=== PATIENT | male | born 1995 | race American Indian/Alaskan Native ===

== ENCOUNTER 2016-11-15 13:34 | Emergency (ER) | payer SELFPAY ==
[2016-11-15 14:26] VITALS: BP 115/73
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
== END 2016-11-15 18:20 | disposition home or self-care (01) ==
LOC: ED 13:34
DX: M62.830 Muscle spasm of back (principal); F17.200 Nicotine dependence, unspecified, uncomplicated; F12.10 Cannabis abuse, uncomplicated
CPT/HCPCS: 99282

== ENCOUNTER 2018-04-02 15:49 | Emergency (ER) | payer SELFPAY ==
[2018-04-02] MEDS ORDERED: IBUPROFEN ONE (16:39)
[2018-04-02] MEDS ORDERED: IBUPROFEN PO ONE (16:41)
[2018-04-02] MEDS ORDERED: TORADOL IV STA (20:35)
[2018-04-02] MEDS ORDERED: REGLAN IV STA (20:35)
[2018-04-02] MEDS ORDERED: NACL 0.9% 1000 ML 1,000 ML IV ONE (20:35)
[2018-04-02] MEDS ORDERED: BENADRYL IV STA (20:35)
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
--- NOTE | 2018-04-02 22:10 | Cat Scan Report ---
FINAL REPORT EXAM: CT HEAD/BRAIN WO CON HISTORY: 2 weeks with dizziness and visual changes TECHNIQUE: 2.5 millimeter axial images from the skullbase to the vertex. Comparison: None FINDINGS: There is no evidence of an acute intracranial process, intracranial hemorrhage or mass effect. The ventricles are normal size. The visualized portions of the orbits, paranasal and mastoid sinuses are notable for moderate to roger ed paranasal sinus mucosal thickening with numerous air-fluid level suggestive of acute sinusitis. The bony structures are unremarkable in appearance. IMPRESSION: 1. Acute sinusitis involving the paranasal sinuses. 2. No CT evidence of an acute intracranial process. If there is a clinical suspicion of an acute intr acranial process, MRI brain without and with gadolinium would be helpful for further evaluation
[2018-04-02 23:07] VITALS: BP 122/60
== END 2018-04-02 23:08 | disposition home or self-care (01) ==
LOC: ED 15:49
DX: J32.1 Chronic frontal sinusitis (principal); R42 Dizziness and giddiness; H53.149 Visual discomfort, unspecified; Z87.891 Personal history of nicotine dependence
CPT/HCPCS: 70450; 96361; 96374; 96375; 99283; J1200; J1885; J2765; J7030

== ENCOUNTER 2019-09-01 17:02 | Emergency (ER) | payer SELFPAY ==
[2019-09-01 17:26] VITALS: BP 125/78
--- NOTE | 2019-09-01 17:55 | Emergency Department Report ---
Chief Complaint: Urogenital-Male Stated Complaint: BURNING WITH URINATION Time Seen by Provider: 09/01/19 17:50 - HPI History of Present Illness: pt is a 24 yo male who presents to the ED with c/o dysuria 2-3 days ago. states he also has penile discharge. no vomiting, no fever, no swelling in the testicles, no pain in the testicles, no abd pain. no pmhx. no allergies to meds. Vitals are normal Patient is presenting with STD-like symptoms He has no abdominal pain, no pain or swelling in the testicles, no urinary retention, no fever, no vomiting Patient referred to the health department and other clinics Patient given multiple resources Advised patient please follow up with the health department or a clinic for a full STD panel. no sexual intercourse. have partner tested and treated as well. return to the emergency room for any new or worsening symptoms. Discussed strict return precautions with patient Medical screening performed and there is no threat to life or limb at this time - Exam Vital Signs: Vital Signs 09/01/19 17:25 Temperature 98.2 F Pulse Rate 66 Respiratory 16 Rate Blood Pressure 125/78 [Left] O2 Sat by Pulse 99 Oximetry MSE screening note: Focused history and physical exam performed. ED Disposition for MSE Clinical Impression: Concern about STD in male without diagnosis Disposition: Z-07 MED SCREENING EXAM-LEFT Is pt being admited?: No Does the pt Need Aspirin: No Condition: Stable Instructions: Sexually Transmitted Diseases (ED), Safe Sex (ED) Additional Instructions: please follow up with the health department or a clinic for a full STD panel. no sexual intercourse. have partner tested and treated as well. return to the emergency room for any new or worsening symptoms. [employer] Address: [address] [place] [id number] Referrals: [facility] [Outside] - 3-5 Days [facility] [Provider Group] - 3-5 Days YANIV JUÁREZ MD [Staff Physician] - 3-5 Days Time of Disposition: 17:50 Print Language: LITHUANIAN
== END 2019-09-01 18:07 | disposition left against medical advice (07) ==
LOC: ED 17:02
DX: R30.0 Dysuria (principal); Z53.21 Procedure and treatment not carried out due to patient leaving prior to being seen by health care provider